=== PATIENT | male | born 1995 | race Caucasian/White ===

== ENCOUNTER 2017-05-21 19:14 | Emergency (ER) | payer OTHER ==
[~2017-05-21 19:14] MED LIST: ABILI PO; ABILIFY20 MG PO; CLONIDINE HCL0.1 MG PO; CLONIDINE HCL0.2 MG; DESYREL 150 MG150 MG; FLOVENT 11120 INHALA; FLUTICASONE PRO16 GM; LAMICTAL25 MG PO; LAMOTRIGINE100 MG; LORATADINE10 M2; PREVACID30 MG PO; PRILOSEC20 MG PO; PROAIR HFA8.5 GM; STRATTERA10 MG; STRATTERA10 MG PO; STRATTERA60 MG; STRATTERA60 MG PO
[2017-05-21 19:36] LABS: BASOPHIL COUNT 0.1 K/uL (0-0.1); EOSINOPHIL (%) 1.4 % (0-5); EOSINOPHIL COUNT 0.2 K/uL (0-0.3); HEMATOCRIT 43.2 % (38.0-50.0); IMMATURE GRANULOCYTE COUNT 0.3 K/uL; INSTRUMENT ABS NEUTROPHIL CT 9.5 K/uL; LYMPHOCYTE COUNT 3.5 K/uL (1.0-2.8); MCH 28.2 PG (29.0-34.0); MCHC 32.2 G/DL (30.0-36.0); MCV 87.6 FL (86-99); MEAN PLAT.VOLUME 9.8 uM^3 (9.0-12.4); MONOCYTE (%) 7.8 % (3-12); MONOCYTE COUNT 1.2 K/uL (0-0.8); NEUTROPHIL (%) 64.4 % (45-76); NEUTROPHIL COUNT 9.5 K/uL (1.8-6.4); PLATELET COUNT 220 K/uL (156-360); RBC DIS.WIDTH-SD 44.3 % (39-53); RED BLOOD COUNT 4.93 M/uL (4.00-5.50); WHITE BLOOD COUNT 14.8 K/uL (4.1-10.2)
[2017-05-21 19:50] LABS: AMYLASE 63 IU/L (1-118); CHLORIDE 106 mEq/L (99-109); POTASSIUM 3.9 mEq/L (3.7-5.4); SODIUM 143 mEq/L (136-147)
[2017-05-21 19:52] LABS: GLUCOSE 88 mg/dL (70-99)
[2017-05-21 19:53] LABS: ANION GAP 12 MEQ/L (2-14)
[2017-05-21 19:55] LABS: SERUM ETHYL ALCOHOL < 10 mg/dL
[2017-05-21 19:56] LABS: GFR ESTIMATE (CALCULATED) > 59 mL/min/; UREA NITROGEN (BUN) 14 mg/dL (9-23)
[2017-05-21 19:59] LABS: LIPASE 15 U/L (1.0-51.0)
[2017-05-22 01:24] LABS: ADD MIUA? NO; BILIRUBIN NEGATIVE; BLOOD NEGATIVE; COLOR YELLOW ((YELLOW)); GLUCOSE (STRIP) NEGATIVE; KETONES NEGATIVE; LEUKOCYTES NEGATIVE; NITRITE NEGATIVE; PROTEIN (STRIP) 30; UCUL ADDED? NO; UROBILINOGEN 0.2 MG/DL (0.2-1.0)
[2017-05-22 01:38] LABS: AMPHETAMINE PRESUMPTIVE POSITIVE (500 ng/mL); BARBITURATES NEGATIVE (200 ng/mL); BENZODIAZEPINES NEGATIVE (150 ng/mL); COCAINE NEGATIVE (150 ng/mL); INTERNAL CONTROLS VALID? YES; METHADONE NEGATIVE (200 ng/mL); METHAMPHETAMINE NEGATIVE (500 ng/mL); OPIATES (MORPHINE) NEGATIVE (100 ng/mL); OXYCODONE NEGATIVE (100 ng/mL); PHENCYCLIDINE NEGATIVE (25 ng/mL); PROPOXYPHENE NEGATIVE (300 ng/mL); THC CANNABINOIDS NEGATIVE (50 ng/mL); TRICYCLIC ANTIDEPRESSANTS NEGATIVE (300 ng/mL)
[2017-05-22 01:39] LABS: ADD MEDTOX COMMENT Y
[2017-05-22 01:45] LABS: SPECIFIC GRAVITY 1.055 (1.000-1.030)
== END 2017-05-22 01:26 | disposition short-term general hospital (02) ==
LOC: TRA 19:14
PROVIDERS: Emergency Medicine
DX: S01.312A Laceration without foreign body of left ear, initial encounter (principal); S42.022A Displaced fracture of shaft of left clavicle, initial encounter for closed fracture; S01.01XA Laceration without foreign body of scalp, initial encounter; S41.012A Laceration without foreign body of left shoulder, initial encounter; V18.0XXA Pedal cycle driver injured in noncollision transport accident in nontraffic accident, initial encounter; Y93.55 Activity, bike riding; Y92.62 Dock or shipyard as the place of occurrence of the external cause; S80.212A Abrasion, left knee, initial encounter; M54.2 Cervicalgia; F32.9 Major depressive disorder, single episode, unspecified; F84.5 Asperger's syndrome; J45.909 Unspecified asthma, uncomplicated; F41.9 Anxiety disorder, unspecified; Z23 Encounter for immunization
CPT/HCPCS: 70450; 70486; 71010; 71260; 72125; 72129; 72132; 74177; 80048; 81003; 82150; 83690; 84999; 85025; 86900; 86901; 99281; 99285; G0480; J2405; J3010